=== PATIENT | male | born 1940 | race Caucasian/White ===

== ENCOUNTER 2020-10-27 06:42 | Day surgery (SDC) | payer MEDICARE, OTHER ==
[~2020-10-27] VITALS: Ht 170 cm; Wt 69.0 kg
[~2020-10-27 06:42] MED LIST: AMLODIPINE BESYL5 MG PO; ASPIRIN EC81 MG PO; LOVASTATIN20 MG PO; PERCOCET 7.5/321 TAB PO; TAMSULOSIN HCL0.4 MG PO; VIAGRA100 MG PO; VITAMIN B122500 MCG PO; XARELTO10 MG PO
[2020-10-27] MEDS ORDERED: VITAMIN B-12500 MCG PO (06:59)
--- NOTE | 2020-10-27 14:45 | NUR ---
PT. WILL RETURN HOME WITH SPOUSE. HE HAS A ROLLING WALKER. PT. REQUESTS [facility]PT [facility]AP[facility]. PT. SIGNED CHOICE FORM CALLED [facility]. FIRST TRINITY IS 10/29/20 @ 3:00 P.M. FAXED CLINICAL INFORMATION TO [facility].
[2020-10-28 05:58] LABS: BASOPHIL 0.3 % (0-2); EOSINOPHIL 0.2 % (0-7); HCT 40.4 % (42.0-52.0); HGB 12.8 g/dl (13.2-18.0); LYMPHOCYTE 6.4 % (15-48); MCH 31.4 pg (25.0-31.0); MCHC 31.7 g/dL (32.0-36.0); MONOCYTE 10.6 % (0-12); MPV 11.5 fL (6.0-9.5); NEUTROPHIL 81.8 % (41-80); NRBC 0; PLT 185 K/uL (150-400); RBC 4.08 M/uL (4.70-6.00); RDW 13.9 % (11.5-14.0); WBC 11.3 K/uL (4.0-10.5)
[2020-10-28 06:23] LABS: BUN/CREAT RATIO (CALC) 16.9 RATIO; CREATININE 1.48 mg/dL (0.67-1.17); POTASSIUM 4.3 mmol/L (3.5-5.1)
[2020-10-28] MEDS ORDERED: XARELTO10 MG PO (09:46)
[2020-10-28] MEDS ORDERED: OXYCODONE-ACET1 EAC1 PO (09:46)
[2020-10-28] MEDS ORDERED: FEOSOL325 MG PO (09:46)
--- NOTE | 2020-10-28 10:57 | NUR ---
TC TO [facility], SPOKE WITH CHEYANNE. PT. CO PAY FOR XARELTO IS $86.00. ADVISED PT. OF COST.
== END 2020-10-28 14:30 | disposition home or self-care (01) ==
LOC: FAS 06:42 → FMS 06:42 → FSDC 06:42 → FMS 08:30 → EDSTATUS 08:30 → FMS 09:00 → FSDC 10:30 → FMS 10:30 → FAS 10-28 14:30
PROVIDERS: Legal Medicine
DX: M16.11 Unilateral primary osteoarthritis, right hip (principal); M70.61 Trochanteric bursitis, right hip; E78.5 Hyperlipidemia, unspecified; I49.9 Cardiac arrhythmia, unspecified; I12.9 Hypertensive chronic kidney disease with stage 1 through stage 4 chronic kidney disease, or unspecified chronic kidney disease; N18.9 Chronic kidney disease, unspecified; Z96.653 Presence of artificial knee joint, bilateral; Z20.822 Contact with and (suspected) exposure to COVID-19
CPT/HCPCS: 36415; 73501; 76000; 80048; 85025; 86850; 86900; 86901; 94010; 94760; 94762; 97110; 97116; 97161; 97165; 97535; C1776; J0171; J0697; J1100; J1885; J2270; J2405; J2704; J2795; J3010; J7120; U0002

== ENCOUNTER → 2021-12-07 | Day surgery (SDC) | payer MEDICARE, OTHER ==
[~2021-12-07] VITALS: Ht 170 cm; Wt 71.3 kg
[~2021-12-07] MED LIST changes: +FEOSOL325 MG PO; +FOLIC ACID1 M1 PO; +LISINOPRIL20 MG PO; +OXYCODONE-ACET1 EAC1 PO; +RHEUMATREX2.5 MG PO; +VITAMIN B-12500 MCG PO
[2021-12-07 09:20] LABS: HCT 47.4 % (42.0-52.0); HGB 15.3 g/dl (13.2-18.0); MCH 31.6 pg (25.0-31.0); MCHC 32.3 g/dL (32.0-36.0); MCV 97.9 fL (78.0-100.0); MPV 12.4 fL (6.0-9.5); RBC 4.84 M/uL (4.70-6.00); WBC 6.4 K/uL (4.0-10.5)
[2021-12-07 09:49] LABS: BUN/CREAT RATIO (CALC) 19.9 RATIO; CREATININE 1.46 mg/dL (0.67-1.17); POTASSIUM 4.7 mmol/L (3.5-5.1)
== END | disposition home or self-care (01) ==
LOC: FAS 08:35
PROVIDERS: Legal Medicine
DX: M70.21 Olecranon bursitis, right elbow (principal); I10 Essential (primary) hypertension; E78.5 Hyperlipidemia, unspecified; F17.200 Nicotine dependence, unspecified, uncomplicated; Z79.899 Other long term (current) drug therapy
CPT/HCPCS: 36415; 80048; 87070; 87075; 87205; J0690; J2250; J2704; J2795; J3010; J7120